=== PATIENT | female | born 1960 | race Caucasian/White ===

== ENCOUNTER → 2017-02-23 | Outpatient (CLI) | payer MEDICARE ==
[~2017-02-23] MED LIST: ALPR1TAB6 PO; AMLO5TAB2 PO; ASPI325T17 PO; CITA40TA5 PO; ESCI20TA10 PO; GABA600T2 PO; LEVO150T5 PO; LEVO175T5 PO; LORA-438 PO; OXYC20TA2 PO; RISP2TAB3 PO; RIVA20TA PO; TRAM50TA2 PO
== END | disposition home or self-care (01) ==
LOC: STAR 10:11
PROVIDERS: ATTEND Surgery
DX: Z02.9 Encounter for administrative examinations, unspecified (principal)

== ENCOUNTER 2017-03-03 09:18 | Day surgery (SDC) | payer MEDICARE ==
[~2017-03-03] VITALS: Ht 177.8 cm; Wt 94.9 kg
[~2017-03-03 09:18] MED LIST changes: +BUPIVACAINE/PF 0.5% ONE; +HEPARIN 1,000 UNITS/ML, 10ML ONE; +LIDOCAINE/PF 1%, 30ML ONE
[2017-03-03 10:01] VITALS: BP 128/82
[2017-03-03] MEDS ORDERED: LACTATED RINGERS 1,000 ML IV SCH (10:31)
[2017-03-03] MEDS ORDERED: BUPIVACAINE/PF 0.5% ONE (10:37)
[2017-03-03] MEDS ORDERED: HEPARIN 1,000 UNITS/ML, 10ML ONE (10:37)
[2017-03-03] MEDS ORDERED: EPINEPHRINE 1 MG/ML, 1ML ONE (10:37)
[2017-03-03] MEDS ORDERED: PROTAMINE SULFATE 10 MG/ML, 5ML ONE (10:38)
[2017-03-03] MEDS ORDERED: FENTANYL PF 100 MCG/2ML ONE (11:01)
[2017-03-03] MEDS ORDERED: MIDAZOLAM 1 MG/ML, 2ML ONE (11:01)
[2017-03-03] MEDS ORDERED: PROPOFOL 10 MG/ML, 20ML ONE (11:14)
[2017-03-03] MEDS ORDERED: MIDAZOLAM 1 MG/ML, 2ML IV PRN (12:30)
[2017-03-03] MEDS ORDERED: ACETAMINOPHEN 325 MG TABLET PO PRN (12:30)
[2017-03-03] MEDS ORDERED: HYDROmorphone 1 MG/ML, 1ML IV PRN (12:30)
[2017-03-03] MEDS ORDERED: LABETALOL 5MG/ML, 20ML IV PRN (12:30)
[2017-03-03] MEDS ORDERED: METOPROLOL 1 MG/ML, 5ML IV PRN (12:30)
[2017-03-03] MEDS ORDERED: PROMETHAZINE 25 MG/ML, 1ML IV PRN (12:30)
[2017-03-03] MEDS ORDERED: hydrALAzine 20 MG/ML, 1ML IV PRN (12:30)
[2017-03-03] MEDS ORDERED: EPHEDRINE 50 MG/ML, 1ML IVPush PRN (12:30)
[2017-03-03] MEDS ORDERED: MEPERIDINE/PF 25MG/0.5ML IVPush PRN (12:30)
[2017-03-03] MEDS ORDERED: OXYcodone 5 MG/5 ML ORAL.SOL UDC PO PRN (12:30)
[2017-03-03] MEDS ORDERED: ALBUTEROL/IPRATROPIUM 2.5MG/0.5MG, 3 ML NPPB PRN (12:30)
[2017-03-03] MEDS ORDERED: ONDANSETRON 2MG/ML, 2ML IVPush PRN (12:30)
[2017-03-03] MEDS ORDERED: HYDROcodone/APAP 7.5-325MG/15ML UDC PO PRN (12:30)
[2017-03-03] MEDS ORDERED: FENTANYL PF 100 MCG/2ML IV PRN (12:30)
[2017-03-03] MEDS ORDERED: ALBUTEROL SULFATE 2.5 MG/3 ML NPPB PRN (12:30)
== END 2017-03-03 16:45 | disposition home or self-care (01) ==
LOC: OUT 09:18
PROVIDERS: ATTEND Surgery
DX: I82.402 Acute embolism and thrombosis of unspecified deep veins of left lower extremity (principal); J44.9 Chronic obstructive pulmonary disease, unspecified; E03.9 Hypothyroidism, unspecified; E66.9 Obesity, unspecified; G89.29 Other chronic pain; F17.210 Nicotine dependence, cigarettes, uncomplicated; I10 Essential (primary) hypertension; Z79.01 Long term (current) use of anticoagulants; Z90.49 Acquired absence of other specified parts of digestive tract; Z98.890 Other specified postprocedural states; Z68.30 Body mass index [BMI] 30.0-30.9, adult
CPT/HCPCS: 37191; C1769; C1880; J0171; J1644; J2250; J2704; J3010; J3490; J7120; J2720

== ENCOUNTER 2017-08-27 19:00 | Inpatient (IN) | payer MEDICARE ==
[~2017-08-27] VITALS: Ht 177.8 cm; Wt 93.6 kg
[~2017-08-27 19:00] MED LIST changes: -BUPIVACAINE/PF 0.5% ONE; +CEPH-368 PO; +DOCU-131 PO; -HEPARIN 1,000 UNITS/ML, 10ML ONE; -LIDOCAINE/PF 1%, 30ML ONE; +METH750T87 PO; +OXYC1TAB7 PO
[2017-08-27] MEDS ORDERED: DIPHENHYDRAMINE 50 MG/ML, 1ML ONE (19:10)
[2017-08-27] MEDS ORDERED: EPINEPHRINE 1 MG/ML, 1ML ONE (19:10)
[2017-08-27] MEDS ORDERED: methylPREDNISolone SOD SUCC 125 MG/2 ML ONE (19:10)
[2017-08-27] MEDS ORDERED: FAMOTIDINE 20 MG/2 ML ONE (19:11)
[2017-08-27] MEDS ORDERED: DEXAMETHASONE 4 MG/ML, 5ML ONE ×2 (19:14→21:19)
[2017-08-27] MEDS ORDERED: SODIUM CHLORIDE 0.9% 1,000ML IVBOLUS ONE (19:30)
[2017-08-27] MEDS ORDERED: VANCOMYCIN PER PHARMACY IV ONE (19:30)
[2017-08-27] MEDS ORDERED: VANCOMYCIN 1,800 MG in SODIUM CHLORIDE 0.9% 250 ML IV ONE (19:30)
[2017-08-27] MEDS ORDERED: PIPERACILLIN/TAZO/PMX 3.375GM 50 ML IVPB ONE (19:30)
[2017-08-27] MEDS ORDERED: PHARMACOKINETIC CONSULTATION MC ONE ×2 (19:30→23:00)
[2017-08-27 19:44] LABS: MEAN CORPUSCULAR HEMOGLOBIN 35.2 pg (27.0-34.8); MEAN CORPUSCULAR HGB CONC 34.4 g/dL (32.4-35.8); MEAN CORPUSCULAR VOLUME 102.5 fL (80-100); MEAN PLATELET VOLUME 7.1 fL (7.4-10.4); PLATELET COUNT 240 x10^3/uL (130-400); RED BLOOD COUNT 4.43 x10^6/uL (3.82-5.3); RED CELL DISTRIBUTION WIDTH 14.7 % (9.6-15.2)
[2017-08-27 19:59] LABS: ALANINE AMINOTRANSFERASE 23 U/L (12-78); ALBUMIN 3.9 g/dL (3.4-5.0); ANION GAP 6 mmol/L (5-15); CALCIUM 8.6 mg/dL (8.5-10.1); CHLORIDE 102 mmol/L (98-107); CREATININE 0.85 mg/dL (0.55-1.02)
[2017-08-27 20:02] LABS: ALKALINE PHOSPHATASE 77 U/L (45-117); BILIRUBIN,TOTAL 0.8 mg/dL (0.2-1.0); TOTAL PROTEIN 7.2 g/dL (6.4-8.2)
[2017-08-27 20:11] LABS: BASOPHILS # (AUTO) 0.03 x10^3/uL (0-0.1); BASOPHILS % (AUTO) 0 % (0-1); EOSINOPHILS # (AUTO) 0.01 x10^3/uL (0-0.4); EOSINOPHILS % (AUTO) 0 % (1-7); LYMPHOCYTES # (AUTO) 1.21 x10^3/uL (1-3.4); LYMPHOCYTES % (AUTO) 8 % (22-44); MONOCYTES # (AUTO) 0.94 x10^3/uL (0.2-0.8); MONOCYTES % (AUTO) 6 % (2-9); NEUTROPHILS # (AUTO) 13.63 x10^3/uL (1.8-6.8); NEUTROPHILS % (AUTO) 86 % (42-75)
[2017-08-27 20:12] LABS: MD SCAN
[2017-08-27] MEDS: MORPHINE SULFATE 4 MG/ML, 1ML IVPush PRN ×2 (20:24→21:48)
[2017-08-27] MEDS ORDERED: ONDANSETRON 2MG/ML, 2ML IVPush ONE (20:30)
[2017-08-27] MEDS ORDERED: DEXAMETHASONE 4 MG/ML, 1ML IVPush ONE (21:00)
[2017-08-27] MEDS ORDERED: LIDOCAINE 2%-EPI 1:100K, 20ML INFIL ONE (21:30)
[2017-08-27] MEDS ORDERED: SODIUM CHLORIDE 0.9% 1,000 ML IV ONE (21:34)
[2017-08-27] MEDS ORDERED: MORPHINE SULFATE 4 MG/ML, 1ML ONE (21:46)
[2017-08-27] MEDS ORDERED: ONDANSETRON 2MG/ML, 2ML IVPush PRN ×2 (22:00→22:30)
[2017-08-27] MEDS ORDERED: MORPHINE SULFATE 4 MG/ML, 1ML IVPush PRN (22:00)
[2017-08-27] MEDS ORDERED: VANCOMYCIN PER PHARMACY MC PRN (22:30)
[2017-08-27] MEDS ORDERED: hydrALAzine 20 MG/ML, 1ML IVPush PRN (22:30)
[2017-08-27] MEDS ORDERED: DOCUSATE 100 MG CAPSULE PO PRN (22:30)
[2017-08-27] MEDS ORDERED: DEXAMETHASONE 10 MG in SODIUM CHLORIDE 0.9% 50 ML IV SCH (22:30)
[2017-08-27] MEDS ORDERED: LABETALOL 5MG/ML, 20ML IVPush PRN (22:30)
[2017-08-27] MEDS ORDERED: BISACODYL 10 MG SUPP PR PRN (22:30)
[2017-08-27] MEDS ORDERED: POLYETHYLENE GLYCOL 17 GM PACKET PO PRN (22:30)
[2017-08-27] MEDS ORDERED: VANCOMYCIN PMX 1GM/200ML 200 ML IV ONE (22:30)
[2017-08-27] MEDS: D5%-0.9% NACL+KCL 20MEQ 1,000 ML IV SCH (22:44)
[2017-08-27] MEDS: DEXAMETHASONE 4 MG/ML, 1ML IV SCH (22:54)
[2017-08-27] MEDS: morphine SULFATE 10 MG/ML, 1ML IVPush PRN (22:54)
[2017-08-27] MEDS: NICOTINE 7 MG/24 HR PATCH.TD24 TD SCH (22:54)
[2017-08-27] MEDS ORDERED: PHARMACOKINETIC MONITORING MC PRN (23:00)
[2017-08-27 23:01] LABS: FREE T4 (FREE THYROXINE) 1.11 ng/dL (0.76-1.46); THYROID STIMULATING HORMONE 7.66 mIU/L (0.358-3.740)
[2017-08-27 23:03] LABS: HEMOGLOBIN A1C 5.1 % (4.2-6.3)
[2017-08-27 23:14] VITALS: BP 139/64
[2017-08-27 23:22] VITALS: BP 139/64
[2017-08-28] MEDS: OXYcodone IR 5MG TABLET PO PRN (00:59)
[2017-08-28] MEDS: PIPERACILLIN/TAZO 3.375 GM in DEXTROSE 5% 50 ML IV SCH ×4 (01:00→19:31)
[2017-08-28] MEDS: morphine SULFATE 10 MG/ML, 1ML IVPush PRN ×3 (01:53→07:50)
[2017-08-28 02:15] LABS: MICROSCOPIC INDICATED
[2017-08-28 02:24] LABS: CULTURE INDICATED? NO
[2017-08-28] MEDS: DEXAMETHASONE 4 MG/ML, 1ML IV SCH ×4 (04:12→22:18)
[2017-08-28 04:19] VITALS: BP 113/61
[2017-08-28 04:44] LABS: BASOPHILS # (AUTO) 0.02 x10^3/uL (0-0.1); BASOPHILS % (AUTO) 0 % (0-1); EOSINOPHILS # (AUTO) 0.01 x10^3/uL (0-0.4); EOSINOPHILS % (AUTO) 0 % (1-7); LYMPHOCYTES % (AUTO) 3 % (22-44); MD NO; MEAN CORPUSCULAR HGB CONC 34.3 g/dL (32.4-35.8); MEAN PLATELET VOLUME 7.3 fL (7.4-10.4); MONOCYTES # (AUTO) 0.51 x10^3/uL (0.2-0.8); MONOCYTES % (AUTO) 3 % (2-9); NEUTROPHILS # (AUTO) 16.69 x10^3/uL (1.8-6.8); NEUTROPHILS % (AUTO) 94 % (42-75); PLATELET COUNT 239 x10^3/uL (130-400); RED BLOOD COUNT 4.28 x10^6/uL (3.82-5.3)
[2017-08-28 04:54] LABS: CHLORIDE 107 mmol/L (98-107)
[2017-08-28 05:01] LABS: ALANINE AMINOTRANSFERASE 160 U/L (12-78); ALBUMIN 3.5 g/dL (3.4-5.0); ALKALINE PHOSPHATASE 224 U/L (45-117); ANION GAP 7 mmol/L (5-15); BILIRUBIN,TOTAL 1.2 mg/dL (0.2-1.0); CALCIUM 8.4 mg/dL (8.5-10.1); CHOL/HDL RATIO 1.6; CHOLESTEROL, TOTAL 177 mg/dL (140-239); CREATININE 0.86 mg/dL (0.55-1.02); HDL CHOL % 62 % (28-40); HDL CHOLESTEROL (DIRECT) 109 mg/dL (40-60); LDL CHOLESTEROL,CALCULATED 56 mg/dL (54-169); LDL/HDL RATIO 0.5 (0.5-3.0); TOTAL PROTEIN 7.2 g/dL (6.4-8.2); TRIGLYCERIDES 61 mg/dL (50-200); VLDL CHOLESTEROL 12 mg/dL (0-25)
[2017-08-28] MEDS ORDERED: ERGOCALCIFEROL 50,000 UNIT CAPSULE PO SCH (07:30)
[2017-08-28] MEDS: LEVOTHYROXINE 100 MCG INJ IVPush SCH (07:51)
[2017-08-28] MEDS: CYANOCOBALAMIN 1,000 MCG TABLET PO SCH (07:51)
[2017-08-28] MEDS: D5%-0.9% NACL+KCL 20MEQ 1,000 ML IV SCH (10:12)
[2017-08-28] MEDS: KETOROLAC 30 MG/1 ML IM PRN ×2 (10:52→17:19)
[2017-08-28] MEDS: VANCOMYCIN 1,800 MG in SODIUM CHLORIDE 0.9% 250 ML IV SCH (14:46)
[2017-08-28] MEDS ORDERED: TRAZODONE 50MG TABLET PO ONE (21:00)
[2017-08-28] MEDS: NICOTINE 7 MG/24 HR PATCH.TD24 TD SCH (22:18)
[2017-08-29] MEDS: KETOROLAC 30 MG/1 ML IM PRN ×3 (01:02→15:38)
[2017-08-29] MEDS: PIPERACILLIN/TAZO 3.375 GM in DEXTROSE 5% 50 ML IV SCH ×3 (02:07→13:59)
[2017-08-29 04:00] VITALS: BP 120/78
[2017-08-29 04:24] LABS: BASOPHILS # (AUTO) 0.03 x10^3/uL (0-0.1); BASOPHILS % (AUTO) 0 % (0-1); EOSINOPHILS % (AUTO) 0 % (1-7); LYMPHOCYTES # (AUTO) 0.81 x10^3/uL (1-3.4); LYMPHOCYTES % (AUTO) 5 % (22-44); MD NO; MEAN CORPUSCULAR HEMOGLOBIN 35.5 pg (27.0-34.8); MEAN CORPUSCULAR HGB CONC 33.3 g/dL (32.4-35.8); MEAN CORPUSCULAR VOLUME 106.4 fL (80-100); MEAN PLATELET VOLUME 7.3 fL (7.4-10.4); MONOCYTES # (AUTO) 0.66 x10^3/uL (0.2-0.8); MONOCYTES % (AUTO) 4 % (2-9); NEUTROPHILS # (AUTO) 14.72 x10^3/uL (1.8-6.8); NEUTROPHILS % (AUTO) 91 % (42-75); PLATELET COUNT 231 x10^3/uL (130-400); RED BLOOD COUNT 4.08 x10^6/uL (3.82-5.3); RED CELL DISTRIBUTION WIDTH 14.9 % (9.6-15.2)
[2017-08-29 04:34] LABS: ALANINE AMINOTRANSFERASE 96 U/L (12-78); ALBUMIN 3.1 g/dL (3.4-5.0); ANION GAP 5 mmol/L (5-15); CALCIUM 8.4 mg/dL (8.5-10.1); CHLORIDE 109 mmol/L (98-107); CREATININE 0.85 mg/dL (0.55-1.02)
[2017-08-29 04:36] LABS: ALKALINE PHOSPHATASE 130 U/L (45-117); BILIRUBIN,TOTAL 0.5 mg/dL (0.2-1.0); TOTAL PROTEIN 6.6 g/dL (6.4-8.2)
[2017-08-29] MEDS: DEXAMETHASONE 4 MG/ML, 1ML IV SCH ×4 (04:46→21:37)
[2017-08-29] MEDS: LEVOTHYROXINE 100 MCG INJ IVPush SCH (09:06)
[2017-08-29] MEDS: FOLIC ACID 1 MG TABLET PO SCH (09:10)
[2017-08-29] MEDS: LEVOTHYROXINE 175 MCG TABLET PO SCH (09:11)
[2017-08-29] MEDS: VANCOMYCIN 1,800 MG in SODIUM CHLORIDE 0.9% 250 ML IV SCH (09:11)
[2017-08-29] MEDS: CYANOCOBALAMIN 1,000 MCG TABLET PO SCH (09:11)
[2017-08-29] MEDS: AMPICILLIN/SULBACTAM 3 GM in SODIUM CHLORIDE 0.9% 100 ML IV SCH ×2 (14:30→21:34)
[2017-08-29 15:29] VITALS: BP 142/87
[2017-08-29] MEDS ORDERED: TRAZODONE 50MG TABLET PO PRN (18:00)
[2017-08-29 18:34] VITALS: BP 131/76
[2017-08-29] MEDS: OXYcodone IR 5MG TABLET PO PRN (20:30)
[2017-08-29] MEDS: NICOTINE 7 MG/24 HR PATCH.TD24 TD SCH (21:37)
[2017-08-30 01:22] VITALS: BP 148/78
[2017-08-30] MEDS: OXYcodone IR 5MG TABLET PO PRN ×4 (01:29→14:40)
[2017-08-30] MEDS: AMPICILLIN/SULBACTAM 3 GM in SODIUM CHLORIDE 0.9% 100 ML IV SCH ×2 (03:32→10:38)
[2017-08-30] MEDS: DEXAMETHASONE 4 MG/ML, 1ML IV SCH ×2 (03:33→10:39)
[2017-08-30 04:16] VITALS: BP 148/78
[2017-08-30] MEDS: LEVOTHYROXINE 175 MCG TABLET PO SCH (06:16)
[2017-08-30 07:39] VITALS: BP 146/78
[2017-08-30] MEDS: FOLIC ACID 1 MG TABLET PO SCH (07:57)
[2017-08-30] MEDS: CYANOCOBALAMIN 1,000 MCG TABLET PO SCH (07:57)
[2017-08-30] MEDS ORDERED: AMOX1TAB61 PO (10:27)
[2017-08-30] MEDS ORDERED: FOLI-17 PO (10:27)
[2017-08-30] MEDS ORDERED: LEVO175T2 PO (10:27)
[2017-08-30] MEDS ORDERED: ACID1TAB3 PO (10:27)
[2017-08-30] MEDS ORDERED: CYAN10005 PO (10:27)
[2017-08-30] MEDS ORDERED: ERGO500017 PO (10:27)
[2017-08-30 12:15] VITALS: BP 152/76
[2017-08-30 16:43] LABS: CLOSTRIDIUM DIFFICILE ANTIGEN NEGATIVE; CLOSTRIDIUM DIFFICILE TOXIN NEGATIVE (Negative)
== END 2017-08-30 16:08 | disposition home or self-care (01) | DRG 871 ==
LOC: ED 20:22 → EDIP 21:34 → CCU 22:19 → 3NW 08-29 15:27
PROVIDERS: ADMIT Internal Medicine; ATTEND Internal Medicine
PROC: 0W933ZZ Drainage of Oral Cavity and Throat, Percutaneous Approach (ICD-10-PCS; principal; 2017-08-27)
DX: A41.9 Sepsis, unspecified organism (principal); J96.01 Acute respiratory failure with hypoxia; R13.10 Dysphagia, unspecified; B17.9 Acute viral hepatitis, unspecified; D75.89 Other specified diseases of blood and blood-forming organs; S01.512A Laceration without foreign body of oral cavity, initial encounter; K12.2 Cellulitis and abscess of mouth; E03.9 Hypothyroidism, unspecified; E55.9 Vitamin D deficiency, unspecified; E78.5 Hyperlipidemia, unspecified; M40.209 Unspecified kyphosis, site unspecified; T38.0X5A Adverse effect of glucocorticoids and synthetic analogues, initial encounter; F17.210 Nicotine dependence, cigarettes, uncomplicated; G89.29 Other chronic pain; I10 Essential (primary) hypertension; K14.6 Glossodynia; Z98.1 Arthrodesis status; Z79.01 Long term (current) use of anticoagulants; Z86.718 Personal history of other venous thrombosis and embolism; Z91.040 Latex allergy status; Y93.89 Activity, other specified; Y99.8 Other external cause status; Y92.89 Other specified places as the place of occurrence of the external cause; X58.XXXA Exposure to other specified factors, initial encounter; F99 Mental disorder, not otherwise specified
CPT/HCPCS: 36415; 70491; 71045; 80053; 80061; 81001; 82306; 82607; 82746; 83036; 83605; 83735; 84145; 84439; 84443; 85025; 87040; 87070; 87081; 87205; 87324; 96365; 96367; 96375; 96376; 99291; J0295; J1100; J1885; J2405; J2543; J3370; J2270; J3480; J7030; J7050

== ENCOUNTER 2017-08-27 19:11 | Emergency (ER) | payer MEDICARE ==
[~2017-08-27 19:11] MED LIST changes: +OMNIPAQUE 350 MG/ML, 100ML BOTTLE ONE
[2017-08-27] MEDS ORDERED: PIPERACILLIN/TAZO/PMX 3.375GM 50 ML ONE (19:27)
[2017-08-27] MEDS ORDERED: ONDANSETRON 2MG/ML, 2ML ONE (20:22)
[2017-08-27] MEDS ORDERED: MORPHINE SULFATE 4 MG/ML, 1ML ONE (20:23)
== END 2017-08-27 19:19 ==
LOC: ED 19:12
DX: J98.8 Other specified respiratory disorders (principal); Z53.21 Procedure and treatment not carried out due to patient leaving prior to being seen by health care provider
CPT/HCPCS: 93005

== ENCOUNTER → 2017-09-14 | Outpatient (CLI) | payer MEDICARE ==
[~2017-09-14] MED LIST changes: +ACID1TAB3 PO; +AMOX1TAB61 PO; +CYAN10005 PO; +ERGO500017 PO; +FOLI-17 PO; +LEVO175T2 PO; -OMNIPAQUE 350 MG/ML, 100ML BOTTLE ONE
== END ==
LOC: CFH 10:04
PROVIDERS: ATTEND Physician Assistant Surgical
DX: Z02.9 Encounter for administrative examinations, unspecified (principal)

== ENCOUNTER → 2017-09-22 | Outpatient (CLI) | payer MEDICARE ==
[~2017-09-22] MED LIST changes: +FENTANYL PF 100 MCG/2ML ONE; +MIDAZOLAM 1 MG/ML, 5ML ONE
== END ==
LOC: RAD 11:55
PROVIDERS: ATTEND Physician Assistant Surgical
DX: D25.9 Leiomyoma of uterus, unspecified (principal); M53.3 Sacrococcygeal disorders, not elsewhere classified
CPT/HCPCS: 72195; 99156; 99157; J3010; J2250

== ENCOUNTER → 2017-11-09 | Outpatient (CLI) | payer MEDICARE ==
[~2017-11-09] MED LIST changes: -FENTANYL PF 100 MCG/2ML ONE; -MIDAZOLAM 1 MG/ML, 5ML ONE
== END | disposition home or self-care (01) ==
LOC: RAD 10:01
PROVIDERS: ATTEND Registered Nurse
DX: G31.9 Degenerative disease of nervous system, unspecified (principal); R90.82 White matter disease, unspecified; G62.9 Polyneuropathy, unspecified
CPT/HCPCS: 70551

== ENCOUNTER → 2017-11-16 | Outpatient (CLI) | payer MEDICARE | END | disposition home or self-care (01) | LOC: CARD 09:18 | PROVIDERS: ATTEND Registered Nurse | DX: G62.9 Polyneuropathy, unspecified (principal) | CPT/HCPCS: 95819 ==

== ENCOUNTER → 2018-03-10 | Outpatient (CLI) | payer MEDICARE ==
[~2018-03-10] MED LIST changes: -AMLO5TAB2 PO; +AMLO5TAB7 PO; +LEVO150T PO; +ONDA4TAB13 PO; +PANT40TA5 PO; +POLY17PO5 PO; +SENN1TAB8 PO; +SUCR1TAB33 PO; +THIA100T67 PO; +TRAZ-136 PO
== END | disposition home or self-care (01) ==
LOC: RAD 12:35
PROVIDERS: ATTEND Physician Assistant Surgical
DX: M43.27 Fusion of spine, lumbosacral region (principal); M43.16 Spondylolisthesis, lumbar region
CPT/HCPCS: 72131

== ENCOUNTER → 2018-05-04 | Outpatient (CLI) | payer MEDICARE ==
[~2018-05-04] MED LIST changes: +CALC1CAP8 PO; +MULT-516 PO; +[UNRECOGNIZED DRUG - CODE] PO
[2018-05-04 16:03] LABS: CULTURE INDICATED? YES; MICROSCOPIC INDICATED
[2018-05-04 16:23] LABS: BASOPHILS # (AUTO) 0.04 x10^3/uL (0-0.1); BASOPHILS % (AUTO) 1 % (0-1); EOSINOPHILS # (AUTO) 0.08 x10^3/uL (0-0.4); EOSINOPHILS % (AUTO) 1 % (1-7); LYMPHOCYTES # (AUTO) 2.49 x10^3/uL (1-3.4); LYMPHOCYTES % (AUTO) 31 % (22-44); MD NO; MEAN CORPUSCULAR HEMOGLOBIN 34.1 pg (27.0-34.8); MEAN CORPUSCULAR HGB CONC 34.1 g/dL (32.4-35.8); MEAN PLATELET VOLUME 7.4 fL (7.4-10.4); MONOCYTES # (AUTO) 0.48 x10^3/uL (0.2-0.8); MONOCYTES % (AUTO) 6 % (2-9); NEUTROPHILS % (AUTO) 62 % (42-75); PLATELET COUNT 246 x10^3/uL (130-400); RED BLOOD COUNT 4.37 x10^6/uL (3.82-5.3); RED CELL DISTRIBUTION WIDTH 12.6 % (9.6-15.2)
[2018-05-04 16:32] LABS: ANION GAP 9 mmol/L (5-15); CALCIUM 9.1 mg/dL (8.5-10.1); CHLORIDE 103 mmol/L (98-107); CREATININE 0.92 mg/dL (0.55-1.02)
[2018-05-04 16:58] LABS: INTERNATIONAL NORMALIZED RATIO 1.04 (0.93-1.1)
== END | disposition home or self-care (01) ==
LOC: STAR 14:32
PROVIDERS: ATTEND Neurological Surgery
DX: Z01.818 Encounter for other preprocedural examination (principal); J43.9 Emphysema, unspecified; T84.84XD Pain due to internal orthopedic prosthetic devices, implants and grafts, subsequent encounter; M53.3 Sacrococcygeal disorders, not elsewhere classified; M54.5 Low back pain; Z90.49 Acquired absence of other specified parts of digestive tract
CPT/HCPCS: 36415; 71046; 72114; 80048; 81001; 85025; 85610; 85730; 87086; 93005

== ENCOUNTER 2018-05-12 10:40 | Inpatient (IN) | payer MEDICARE ==
[~2018-05-12] VITALS: Ht 177.8 cm; Wt 75.0 kg
[~2018-05-12 10:40] MED LIST changes: +AMLO-150 PO; -AMLO5TAB7 PO; +BACITRACIN 50,000 UNIT ONE; +BUPIVACAINE 0.25% ONE; +BUPIVACAINE/PF-EPI 0.5% 1:200K ONE; +FENTANYL PF 250 MCG/5ML ONE; +MIDAZOLAM 1 MG/ML, 2ML ONE; +THROMBIN 5,000 UNIT VIAL TP ONE; -TRAZ-136 PO; +TRAZ50TA66 PO
[2018-05-12] MEDS ORDERED: LACTATED RINGERS 1,000 ML IV SCH (11:11)
[2018-05-12 11:30] VITALS: BP 102/71
[2018-05-12] MEDS ORDERED: ACETAMINOPHEN 500 MG TABLET PO ONE (11:30)
[2018-05-12] MEDS ORDERED: GABAPENTIN 300 MG CAPSULE PO ONE (11:30)
[2018-05-12] MEDS ORDERED: PROMETHAZINE 25 MG/ML, 1ML IV PRN (14:30)
[2018-05-12] MEDS ORDERED: hydrALAzine 20 MG/ML, 1ML IV PRN (14:30)
[2018-05-12] MEDS ORDERED: LABETALOL 5MG/ML, 20ML IV PRN ×2 (14:30→17:00)
[2018-05-12] MEDS ORDERED: ALBUTEROL SULFATE 2.5 MG/3 ML NPPB PRN ×2 (14:30→17:00)
[2018-05-12] MEDS ORDERED: OXYcodone 5 MG/5 ML ORAL.SOL UDC PO PRN (14:30)
[2018-05-12] MEDS ORDERED: HYDROmorphone 2 MG/ML, 1ML IVPush PRN (14:30)
[2018-05-12] MEDS ORDERED: HALOPERIDOL 5 MG/ML IV PRN (14:30)
[2018-05-12] MEDS ORDERED: FENTANYL PF 100 MCG/2ML ONE (14:57)
[2018-05-12] MEDS: FENTANYL PF 100 MCG/2ML IV PRN ×2 (15:04→15:15)
[2018-05-12] MEDS ORDERED: OXYcodone 5 MG/5 ML ORAL.SOL UDC ONE (15:08)
[2018-05-12] MEDS: DIAZEPAM 5 MG/ML, 2ML IVPush PRN ×2 (15:20→15:40)
[2018-05-12] MEDS ORDERED: HYDROmorphone 2 MG/ML, 1ML ONE (15:41)
[2018-05-12] MEDS ORDERED: PROPOFOL 10 MG/ML, 20ML ONE (16:03)
[2018-05-12] MEDS ORDERED: DEXAMETHASONE 4 MG/ML, 1ML ONE (16:03)
[2018-05-12] MEDS ORDERED: EPHEDRINE 50 MG/ML, 1ML ONE (16:03)
[2018-05-12] MEDS ORDERED: SUCCINYLCHOLINE 20 MG/ML, 10ML ONE (16:03)
[2018-05-12] MEDS ORDERED: ONDANSETRON 2MG/ML, 2ML ONE (16:03)
[2018-05-12 16:34] VITALS: BP 91/58
[2018-05-12] MEDS ORDERED: morphine SULFATE 10 MG/ML, 1ML IV PRN (17:00)
[2018-05-12] MEDS ORDERED: OXYcodone/APAP 10/325MG TABLET PO PRN (17:00)
[2018-05-12] MEDS ORDERED: BISACODYL 10 MG SUPP PR PRN (17:00)
[2018-05-12] MEDS ORDERED: MAGNESIUM HYDROXIDE 8%, 30ML UDC PO PRN (17:00)
[2018-05-12] MEDS ORDERED: DIPHENHYDRAMINE 25 MG CAPSULE PO PRN (17:00)
[2018-05-12] MEDS ORDERED: ONDANSETRON 2MG/ML, 2ML IV PRN (17:00)
[2018-05-12] MEDS ORDERED: KETOROLAC 30 MG/1 ML IV PRN (17:00)
[2018-05-12] MEDS ORDERED: DIPHENHYDRAMINE 50 MG/ML, 1ML IVPush PRN (17:00)
[2018-05-12] MEDS: METHOCARBAMOL 750 MG TABLET PO SCH ×2 (18:15→23:00)
[2018-05-12 18:30] VITALS: BP 92/56
[2018-05-12] MEDS: HYDROcodone/APAP 10/325 MG TABLET PO PRN (18:43)
[2018-05-12 19:34] VITALS: BP 94/59
[2018-05-12] MEDS: D5%-0.9% NACL+KCL 20MEQ 1,000 ML IV SCH (20:06)
[2018-05-12] MEDS: FAMOTIDINE 20 MG TABLET PO SCH (20:06)
[2018-05-12] MEDS ORDERED: SODIUM CHLORIDE 0.9%, 500ML IVBOLUS ONE (21:00)
[2018-05-12] MEDS ORDERED: TRAZODONE 150MG TABLET PO SCH (21:00)
[2018-05-12] MEDS ORDERED: CEFAZOLIN PMX 1GM/50ML 0 ML ONE (23:22)
[2018-05-12] MEDS: CEFAZOLIN 1,000 MG in SODIUM CHLORIDE 0.9% 50 ML IVPB SCH (23:36)
[2018-05-13 00:45] VITALS: BP 88/49
[2018-05-13] MEDS: METHOCARBAMOL 750 MG TABLET PO SCH ×2 (01:20→08:24)
[2018-05-13] MEDS ORDERED: SODIUM CHLORIDE 0.9%, 500ML IVBOLUS ONE (01:30)
[2018-05-13 04:06] VITALS: BP 84/47
[2018-05-13] MEDS: D5%-0.9% NACL+KCL 20MEQ 1,000 ML IV SCH (05:13)
[2018-05-13 05:24] VITALS: BP 93/54
[2018-05-13] MEDS ORDERED: LEVOTHYROXINE 150 MCG TABLET PO SCH (06:00)
[2018-05-13 07:13] VITALS: BP 88/52
[2018-05-13] MEDS: CEFAZOLIN 1,000 MG in SODIUM CHLORIDE 0.9% 50 ML IVPB SCH (07:20)
[2018-05-13] MEDS: FAMOTIDINE 20 MG TABLET PO SCH (08:24)
[2018-05-13] MEDS ORDERED: RIVAROXABAN 20 MG TABLET PO SCH (09:00)
[2018-05-13] MEDS ORDERED: AMLODIPINE 2.5 MG TABLET PO SCH (09:00)
[2018-05-13] MEDS ORDERED: SENNA/DOCUSATE TABLET PO SCH (09:00)
[2018-05-13] MEDS: HYDROcodone/APAP 10/325 MG TABLET PO PRN (10:53)
[2018-05-13 12:08] VITALS: BP_SYST 81; BP_SYST 94; BP_DIAS 45; BP_DIAS 57
[2018-05-15] MEDS ORDERED: BISACODYL 5 MG EC TABLET PO SCH (17:00)
== END 2018-05-13 12:34 | disposition home or self-care (01) | DRG 515 ==
LOC: OUT 10:40 → 4NOR 16:15 → OUT 16:31 → 4NOR 16:31
PROVIDERS: ADMIT Neurological Surgery; ATTEND Neurological Surgery
PROC: 01NB0ZZ Release Lumbar Nerve, Open Approach (ICD-10-PCS; 2018-05-12)
PROC: 0SP304Z Removal of Internal Fixation Device from Lumbosacral Joint, Open Approach (ICD-10-PCS; principal; 2018-05-12 07:00)
DX: T84.84XA Pain due to internal orthopedic prosthetic devices, implants and grafts, initial encounter (principal); R53.2 Functional quadriplegia; G25.9 Extrapyramidal and movement disorder, unspecified; Y83.1 Surgical operation with implant of artificial internal device as the cause of abnormal reaction of the patient, or of later complication, without mention of misadventure at the time of the procedure; G89.29 Other chronic pain; Z86.718 Personal history of other venous thrombosis and embolism; Z98.1 Arthrodesis status; Z91.040 Latex allergy status; Z79.01 Long term (current) use of anticoagulants; Y92.89 Other specified places as the place of occurrence of the external cause
CPT/HCPCS: 72100; G0378; J0690; J1100; J1170; J1885; J2250; J2405; J2704; J3010; J3360; J3490; J0330; J3480; J7040; Q0163

== ENCOUNTER 2018-06-14 13:36 | Emergency (ER) | payer MEDICARE ==
[~2018-06-14] VITALS: Ht 177.8 cm; Wt 73.1 kg
[~2018-06-14 13:36] MED LIST changes: -BACITRACIN 50,000 UNIT ONE; -BUPIVACAINE 0.25% ONE; -BUPIVACAINE/PF-EPI 0.5% 1:200K ONE; -FENTANYL PF 250 MCG/5ML ONE; -GABA600T2 PO; +GABA600T7 PO; -MIDAZOLAM 1 MG/ML, 2ML ONE; -THROMBIN 5,000 UNIT VIAL TP ONE
[2018-06-14 14:16] LABS: BASOPHILS # (AUTO) 0.07 x10^3/uL (0-0.1); BASOPHILS % (AUTO) 1 % (0-1); EOSINOPHILS # (AUTO) 0.08 x10^3/uL (0-0.4); EOSINOPHILS % (AUTO) 1 % (1-7); LYMPHOCYTES # (AUTO) 2.12 x10^3/uL (1-3.4); LYMPHOCYTES % (AUTO) 25 % (22-44); MD NO; MEAN CORPUSCULAR HGB CONC 33.7 g/dL (32.4-35.8); MEAN CORPUSCULAR VOLUME 97.8 fL (80-100); MEAN PLATELET VOLUME 7.3 fL (7.4-10.4); MONOCYTES # (AUTO) 0.52 x10^3/uL (0.2-0.8); MONOCYTES % (AUTO) 6 % (2-9); NEUTROPHILS # (AUTO) 5.81 x10^3/uL (1.8-6.8); NEUTROPHILS % (AUTO) 68 % (42-75); PLATELET COUNT 243 x10^3/uL (130-400); RED BLOOD COUNT 4.47 x10^6/uL (3.82-5.3); RED CELL DISTRIBUTION WIDTH 12.8 % (9.6-15.2)
[2018-06-14 14:25] LABS: ALANINE AMINOTRANSFERASE 17 U/L (12-78); ALBUMIN 4.4 g/dL (3.4-5.0); ANION GAP 9 mmol/L (5-15); CALCIUM 9.1 mg/dL (8.5-10.1); CHLORIDE 96 mmol/L (98-107); CREATININE 0.85 mg/dL (0.55-1.02)
--- NOTE | 2018-06-14 14:25 | NUR ---
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
[2018-06-14 14:30] LABS: ALKALINE PHOSPHATASE 98 U/L (45-117); BILIRUBIN,TOTAL 0.9 mg/dL (0.2-1.0); TOTAL PROTEIN 6.9 g/dL (6.4-8.2); TROPONIN I < 0.015 ng/mL (0.000-0.045)
--- NOTE | 2018-06-14 14:42 | NUR ---
CARDIAC & BP MONOTOR APPLIED. DR LUGO BS FOR EXAM. PT REPORTS NEW PAIN IN NECK, BACK, CHEST, LT EAR. PT'S SPOUSE CONTRIBUTING TO MEDICAL INFORMATION. PT SITTING UP ON SIDE OF BED, ABLE TO MOVE ALL EXTREMETIES. PT STATES SHE TOOK NAPROXEN TODAY: TOTAL OF 6 IN SETS OF 3 - LAST DOSE UNKOWN. HAS BEEN TAKING NORCO; STATES "I'M DOWN TO TWO A DAY" (IN THE AFTERNOON) OF NORCO. HAS BEEN TAKING NORCO "2 EVERY 4 HRS FOR A COUPLE OF WEEKS", THEN 1 Q 4HRS "FOR A COUPLE OF WEEKS". LOWER BACK SURGICAL SCAR: WELL HEALED. OLD SURGICAL SCAR TO POSTERIOR NECK.
[2018-06-14] MEDS ORDERED: NAPROXEN (14:53)
[2018-06-14] MEDS ORDERED: HYDR-3622 PO (14:55)
[2018-06-14] MEDS ORDERED: METH750T87 PO (14:57)
--- NOTE | 2018-06-14 14:58 | NUR ---
MED REC IN PROCESS. ROBAXIN BOTTLE IS EMPTY. PER PT LAST DOSE 06/14/18 @ 1000. RX FILLED 05/13/18, QTY 90. ERP WILL BE NOTIFIED.
[2018-06-14] MEDS ORDERED: SODIUM CHLORIDE FLUSH 10ML SYR IVF ONE (15:00)
[2018-06-14] MEDS ORDERED: PANT40TA5 PO (15:01)
[2018-06-14] MEDS ORDERED: SUCR1TAB PO (15:01)
--- NOTE | 2018-06-14 15:50 | NUR ---
1530 PT AGITATED-WILL CHECK LATER FOR CT
--- NOTE | 2018-06-14 16:00 | NUR ---
PT LYING QUIETLY ON GURNEY. VOIDED URINE IN COLLECTION HAT. SPECIMEN WILL BE SENT TO LAB. FORK OPERATOR BS. PT STATES "I'M NOT SURE I CAN LIE STILL". ADVISED GOING TO CT AND GIVING IT A TRY.
--- NOTE | 2018-06-14 16:06 | NUR ---
TO CT PER LINUS
[2018-06-14] MEDS ORDERED: OMNIPAQUE 350 MG/ML, 100ML BOTTLE ONE (16:21)
[2018-06-14] MEDS ORDERED: KETOROLAC 30 MG/1 ML ONE (17:18)
--- NOTE | 2018-06-14 17:24 | NUR ---
BS PT REPORT TO TEGAN ESCALANTE RN. TORADOL GIVEN PER RENARD ESCALANTE.
[2018-06-14] MEDS ORDERED: KETOROLAC 30 MG/1 ML IVPush ONE (17:30)
--- NOTE | 2018-06-14 18:12 | NUR ---
PT. IS NOT WANTING TO GO HOME. DISCUSSED WITH DR. LUGO. STATES PT. DOES NOT HAVE AN ADMITTABLE CAUSE. PT. WAS GIVEN DISCHARGE INSTRUCTIONS WITH UNDERSTANDING VERBALIZED ALONG WITH WILLINGNESS TO COMPLY. PT.'S IV WAS DCD',CATH TIP INTACT. PRESSURE HELD WITH HEMOSTASIS ACHIEVED. PT. ASSISTED TO THE DISCHARGE DESK BY WHEELCHAIR.
[2018-06-14 18:16] VITALS: BP 113/71
== END 2018-06-14 18:22 | disposition home or self-care (01) ==
LOC: ED 15:31
DX: R07.89 Other chest pain (principal); R06.00 Dyspnea, unspecified; M54.6 Pain in thoracic spine; F11.23 Opioid dependence with withdrawal; J44.9 Chronic obstructive pulmonary disease, unspecified; I10 Essential (primary) hypertension; Z90.49 Acquired absence of other specified parts of digestive tract; Z86.718 Personal history of other venous thrombosis and embolism; Z91.040 Latex allergy status
CPT/HCPCS: 36415; 71275; 80053; 84484; 85025; 93005; 96374; 99284; J1885; Q9967

== ENCOUNTER → 2018-06-28 | Outpatient (CLI) | payer MEDICARE ==
[~2018-06-28] MED LIST changes: +HYDR-3622 PO; +NAPROXEN; +SUCR1TAB PO
== END | disposition home or self-care (01) ==
LOC: CFH 09:12
PROVIDERS: ATTEND Family Medicine
DX: Z12.31 Encounter for screening mammogram for malignant neoplasm of breast (principal); M85.88 Other specified disorders of bone density and structure, other site; N95.9 Unspecified menopausal and perimenopausal disorder
CPT/HCPCS: 77080; 77067

== ENCOUNTER → 2018-07-12 | Outpatient (CLI) | payer MEDICARE | END | disposition home or self-care (01) | LOC: CFH 09:15 | PROVIDERS: ATTEND Family Medicine | DX: K42.9 Umbilical hernia without obstruction or gangrene (principal) | CPT/HCPCS: 76705 ==

== ENCOUNTER 2018-08-02 08:43 | Outpatient (CLI) | payer MEDICARE ==
[~2018-08-02 08:43] MED LIST changes: +SENN-177 PO; -SENN1TAB8 PO
[2018-08-02] MEDS ORDERED: RIVA20TA PO (14:38)
[2018-08-02] MEDS ORDERED: DULO20CA45 PO (14:38)
== END 2018-08-02 23:59 | disposition home or self-care (01) ==
LOC: STAR 08:43
PROVIDERS: ATTEND Surgery
DX: Z02.9 Encounter for administrative examinations, unspecified (principal)

== ENCOUNTER 2018-08-14 08:21 | Day surgery (SDC) | payer MEDICARE ==
[~2018-08-14] VITALS: Ht 177.8 cm; Wt 69.1 kg
[~2018-08-14 08:21] MED LIST changes: +BUPIVACAINE/PF-EPI 0.5% 1:200K ONE; +DULO20CA45 PO
[2018-08-14] MEDS ORDERED: LACTATED RINGERS 1,000 ML IV SCH (09:10)
[2018-08-14 09:11] VITALS: BP 95/58
[2018-08-14] MEDS ORDERED: LIDOCAINE-MPF 1%, 2ML INFIL ONE (09:30)
[2018-08-14] MEDS ORDERED: ACETAMINOPHEN 500 MG TABLET PO ONE (09:30)
[2018-08-14] MEDS ORDERED: GABAPENTIN 300 MG CAPSULE PO ONE (09:30)
[2018-08-14] MEDS ORDERED: DIAZEPAM 5 MG TABLET PO ONE (09:30)
[2018-08-14] MEDS ORDERED: PROPOFOL 50 ML ONE (09:53)
[2018-08-14] MEDS ORDERED: MIDAZOLAM 1 MG/ML, 2ML ONE (09:54)
[2018-08-14] MEDS ORDERED: FENTANYL PF 250 MCG/5ML ONE (09:54)
[2018-08-14] MEDS ORDERED: KETOROLAC 30 MG/1 ML ONE (10:07)
[2018-08-14] MEDS ORDERED: SUCCINYLCHOLINE 20 MG/ML, 10ML ONE (10:07)
[2018-08-14] MEDS ORDERED: ROCURONIUM 10MG/ML,5ML ONE (10:07)
[2018-08-14] MEDS ORDERED: ONDANSETRON 2MG/ML, 2ML ONE (10:07)
[2018-08-14] MEDS ORDERED: CEFAZOLIN 1,000 MG ONE (10:07)
[2018-08-14] MEDS ORDERED: GLYCOPYRROLATE 0.2MG/1ML, 5ML ONE (10:07)
[2018-08-14] MEDS ORDERED: DEXAMETHASONE 4 MG/ML, 1ML ONE (10:07)
[2018-08-14] MEDS ORDERED: EPHEDRINE 50 MG/ML, 1ML IVPush PRN (10:30)
[2018-08-14] MEDS ORDERED: PROMETHAZINE 12.5 MG SUPP PR PRN (10:30)
[2018-08-14] MEDS ORDERED: OXYcodone 5 MG/5 ML ORAL.SOL UDC PO PRN (10:30)
[2018-08-14] MEDS ORDERED: LABETALOL 5MG/ML, 20ML IV PRN (10:30)
[2018-08-14] MEDS ORDERED: MORPHINE SULFATE 4 MG/ML, 1ML IVPush PRN (10:30)
[2018-08-14] MEDS ORDERED: MIDAZOLAM 1 MG/ML, 2ML IV PRN (10:30)
[2018-08-14] MEDS ORDERED: PROMETHAZINE 25 MG SUPP PR PRN (10:30)
[2018-08-14] MEDS ORDERED: PROMETHAZINE 25 MG/ML, 1ML IV PRN (10:30)
[2018-08-14] MEDS ORDERED: ONDANSETRON 2MG/ML, 2ML IV PRN (10:30)
[2018-08-14] MEDS ORDERED: DIPHENHYDRAMINE 50 MG/ML, 1ML IVPush PRN (10:30)
[2018-08-14] MEDS ORDERED: MEPERIDINE/PF 25MG/0.5ML IVPush PRN (10:30)
[2018-08-14] MEDS ORDERED: EPHEDRINE 50 MG/ML, 1ML IM PRN (10:30)
[2018-08-14] MEDS ORDERED: DIAZEPAM 5 MG/ML, 2ML IVPush PRN (10:30)
[2018-08-14] MEDS ORDERED: ONDANSETRON ODT 8 MG PO PRN (10:30)
[2018-08-14] MEDS ORDERED: OXYcodone 5 MG/5 ML ORAL.SOL UDC ONE (10:49)
[2018-08-14] MEDS ORDERED: FENTANYL PF 100 MCG/2ML ONE (10:49)
[2018-08-14] MEDS: FENTANYL PF 100 MCG/2ML IV PRN ×2 (10:50→11:15)
== END 2018-08-14 14:10 | disposition home or self-care (01) ==
LOC: OUT 08:21
PROVIDERS: ATTEND Surgery
DX: K43.0 Incisional hernia with obstruction, without gangrene (principal); J44.9 Chronic obstructive pulmonary disease, unspecified; I10 Essential (primary) hypertension; E03.9 Hypothyroidism, unspecified; Z91.040 Latex allergy status
CPT/HCPCS: 49561; 49568; C1781; J0330; J0690; J1100; J1885; J2250; J2405; J2704; J3010; J3490; J7120

== ENCOUNTER 2020-06-29 12:33 | Emergency (ER) | payer MEDICARE ==
[~2020-06-29] VITALS: Ht 177.8 cm; Wt 70.0 kg
[~2020-06-29 12:33] MED LIST changes: -BUPIVACAINE/PF-EPI 0.5% 1:200K ONE; +CYAN-27 PO; -CYAN10005 PO; -LORA-438 PO; +LORA-864 PO; -PANT40TA5 PO; +PANT40TA6 PO; -RISP2TAB3 PO; +RISP2TAB80 PO
--- NOTE | 2020-06-29 13:00 | NUR ---
pt ambulates from triage to room with a slow and shuffling gait. awaiting erp at this time. pt changed into gown and is resting in gurney with call light within reach.
--- NOTE | 2020-06-29 15:18 | NUR ---
PT D/C WITH D/C SUMMARY AND SCRIPTS. ALL QUESTIONS ANSWERED. PT AMBULATES TO LOBBY WITH STEADY GAIT FOR D/C HOME AND DENIES ANY OTHER NEEDS PERTAINING TO THIS VISIT. PER PT, PT STEP SON TO PICK PT UP FOR SAFE D/C HOME. PT VSS UPON D/C. PT DENIES ANY OTHER NEEDS PERTAINING TO THIS VISIT.
[2020-06-29 15:20] VITALS: BP 146/90
== END 2020-06-29 15:23 | disposition home or self-care (01) ==
LOC: ED 12:53
DX: U07.1 COVID-19 (principal); J02.9 Acute pharyngitis, unspecified; J30.2 Other seasonal allergic rhinitis; H65.02 Acute serous otitis media, left ear; R51.9 Headache, unspecified; I10 Essential (primary) hypertension; G89.29 Other chronic pain; F17.200 Nicotine dependence, unspecified, uncomplicated; Z86.718 Personal history of other venous thrombosis and embolism; Z90.49 Acquired absence of other specified parts of digestive tract
CPT/HCPCS: 87635; 99283